=== PATIENT | female | born 1960 | race Caucasian/White ===

== ENCOUNTER 2020-09-22 12:35 | Emergency (ER) | payer OTHER ==
[~2020-09-22] VITALS: Ht 167.6 cm; Wt 68.1 kg
[2020-09-22 12:40] VITALS: BP 163/90
[2020-09-22] MEDS ORDERED: DIPH,PERTUSS(ACELL),TET VAC/PF 0.5 ML SYRINGE. VAX IM ONE (13:00)
[2020-09-22] MEDS ORDERED: LIDOCAINE 1%/EPI 1:100,000 10 ML VIAL. INJ ONE (13:15)
[2020-09-22] MEDS ORDERED: HYDROcodone/APAP 5/325MG 1 TAB TABLET PO ONE (13:15)
--- NOTE | 2020-09-22 13:17 | PHYS DOC ---
Past History Past Medical History: Hypertension, Other Additional Past Medical Histor: SPASMATIC DYSTONIA (KRISTIAN GOLDSTEIN APRN) Past Surgical History: , Other Additional Past Surgical Histo: L-KNEE (KRISTIAN GOLDSTEIN APRN) Alcohol Use: Occasionally (KRISTIAN GOLDSTEIN APRN) General Adult EDM: Chief Complaint: LACERATION/AVULSION HPI: HPI: Patient is a 60-year-old female presents with laceration to her left wrist after slipping and falling on glass. Patient states she dropped a tea pot and to avoid having her feet, she stepped back and then slipped on the floor and fell forwards onto the glass. Patient denies hitting her head, or loss of consciousness. Denies any other injuries. Denies tetanus vaccine up-to-date. Denies taking anything for pain prior to arrival. (KRISTIAN GOLDSTEIN APRN) Review of Systems: Review of Systems: Respiratory: Denies cough or shortness of breath Cardiovascular: Denies chest pain or edema Musculoskeletal: Denies back pain or joint pain Integument: Reports laceration to left wrist (KRISTIAN GOLDSTEIN APRN) Current Medications: Current Meds: Current Medications Medications (Trade) Dose Ordered Sig/Edith Start Time Stop Time Status Last Admin Dose Admin Acetaminophen/ Hydrocodone Bitart (Lortab 5/325) 1 tab 1X ONCE 09/22/20 13:15 09/22/20 13:16 UNV Diphtheria/ Pertussis/Tetanus Vacc (ADACEL TDap SYRINGE) 0.5 ml ONCE ONCE 09/22/20 13:00 09/22/20 13:05 DC Lidocaine/ Epinephrine (Xylocaine 1%-Epi 1:100,000) 10 ml 1X ONCE 09/22/20 13:15 09/22/20 13:16 UNV (KRISTIAN GOLDSTEIN APRN) Allergies: Allergies: Allergies Coded Allergies Type Severity Reaction Last Updated Verified No Known Drug Allergies 09/22/20 No (KRISTIAN GOLDSTEIN APRN) Physical Exam: PE: Constitutional: Well developed, well nourished, no acute distress, non-toxic appearance. [] Cardiovascular:Heart rate regular rhythm, no murmur [] Lungs & Thorax: Bilateral breath sounds clear to auscultation [] Skin: Laceration to left wrist, bleeding is controlled, range of motion intact Extremities: No tenderness, ROM intact, no edema. [] (KRISTIAN GOLDSTEIN APRN) Current Patient Data: Vital Signs: Vital Signs Date Time Temp Pulse Resp B/P (MAP) Pulse Ox O2 Delivery O2 Flow Rate FiO2 09/22/20 12:40 98.4 94 20 163/90 (114) 97 Room Air (KRISTIAN GOLDSTEIN APRN) EKG: EKG: [] (KRISTIAN GOLDSTEIN APRN) Radiology/Procedures: Radiology/Procedures: []Left wrist x-rays 3 views HISTORY: Fall, pain. FINDINGS: No fracture. No dislocation. 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 Soft tissues are unremarkable. IMPRESSION: No acute osseous injury. Electronically signed by: Christofer Romero MD (09/22/2020 1:46 PM) [id number] 5-0 sutures used to repair laceration to left wrist. Wound was cleaned with saline, injected Lido, 5 sutures placed. (KRISTIAN GOLDSTEIN APRN) Heart Score: C/O Chest Pain: No Risk Factors: Risk Factors: DM, Current or recent (<one month) smoker, HTN, HLP, family history of CAD, obesity. Risk Scores: Score 0 - 3: 2.5% MACE over next 6 weeks - Discharge Home Score 4 - 6: 20.3% MACE over next 6 weeks - Admit for Clinical Observation Score 7 - 10: 72.7% MACE over next 6 weeks - Early Invasive Strategies (KRISTIAN GOLDSTEIN APRN) Course & Med Decision Making: Course & Med Decision Making Pertinent Labs and Imaging studies reviewed. (See chart for details) [] 60-year-old female presents with laceration to her left wrist after slipping and falling on broken glass. X-ray of left wrist ordered to rule out foreign body fracture. X-rays negative for foreign bodies or fracture. Wound cleaned with saline. Left wrist sutured. Tdap given. Patient to keep wound clean and dry. Patient will need to follow-up with her primary care physician or return to the emergency room to have sutures removed in 7 to 10 days. (KRISTIAN GOLDSTEIN APRN) Course & Med Decision Making I oversaw on the above date of service of this patient and discussed the care with the CONTACT CENTER AGENT. I agree with the findings, plan of care, and disposition as documented. Electronically signed, Shahriar So DO (SHAHRIAR SO DO) Corrina Disclaimer: Corrina Disclaimer: This electronic medical record was generated, in whole or in part, using a voice recognition dictation system. (KRISTIAN GOLDSTEIN APRN) Departure Departure: Impression: Primary Impression: Laceration of wrist, left Qualified Codes: S61.512A - Laceration without foreign body of left wrist, initial encounter Disposition: HOME / SELF CARE / HOMELESS Condition: STABLE Referrals: PAULINA MEZA MD (PCP) Patient Instructions: Laceration Care, Adult, [id number] Additional Instructions: You were seen in the emergency room after a fall and laceration to your left wrist. You were given a tetanus vaccination. X-ray of your left wrist was negative for any foreign marco or fracture. Please keep the sutures clean and dry. You will need to return to the emergency room to have sutures removed or follow-up with your PCP for removal in 7 to 10 days. Return emergency room with worsening symptoms or concerns. EMERGENCY DEPARTMENT GENERAL DISCHARGE INSTRUCTIONS Thank you for coming to [facility] ([facility]) today and trusting us with you care. We trust that you had a positivie experience in our Emergency Department. If you wish to speak to the department management, you may call the director at [phone]. YOUR FOLLOW UP INSTRUCTIONS ARE FOLLOWS: 1. Do you have a private Doctor? If you do not have a private doctor, please ask for a resource list of physicians or clinics that may be able to assist you with follow up care. 2. The Emergency Physician has interpreted your x-rays. The X-Ray specialist will also review them. If there is a change in the findings, you will be notified in 48 hours when at all possible. 3. A lab test or culture has been done, your results will be reviewed and you will be notified if you need a change in treatment. ADDITIONAL INSTRUCTIONS AND INFORMATION: 1. Your care today has been supervised by a physician who is specially trained in emergency care. Many problems require more than one evaluation for a complete diagnosis and treatment. We recommend that you schedule your follow up appointment as recommended to ensure complete treatment of you illness or injury. If you are unable to obtain follow up care and continue to have a problem, or if your condition worsens, we recommend that you return to the ED. 2. We are not able to safely determine your condition over the phone nor are we able to give sound medical advice over the phone. For these safety reasons, if you call for medical advice we will ask you to come to the ED for further evaluation. 3. If you have any questions regarding these discharge instructions please call the ED at [phone]. SAFETY INFORMATION: In the interest of safety, wellness, and injury prevention; we encourage you to wear your sealbelt, if you smoke; quite smoking, and we encourage family to use a protective helmet for bicycling and other sporting events that present an increased risk for head injury. IF YOUR SYMPTOMS WORSEN OR NEW SYMPTOMS DEVELOP, OR YOU HAVE CONCERNS ABOUT YOUR CONDITION; OR IF YOUR CONDITION WORSENS WHILE YOU ARE WAITING FOR YOUR FOLLOW UP APPOINTMENT; EITHER CONTACT YOUR PRIMARY CARE DOCTOR, THE PHYSICIAN WHOSE NAME AND NUMBER YOU WERE GIVEN, OR RETURN TO THE ED IMMEDIATELY. KRISTIAN GOLDSTEIN APRN September 22, 2020 13:17 SHAHRIAR SO DO September 26, 2020 09:54
--- NOTE | 2020-09-22 13:48 | RAD ---
Left wrist x-rays 3 views HISTORY: Fall, pain. FINDINGS: No fracture. No dislocation. Mild osteoarthritic change at the first MCP joint and of the t humb interphalangeal joint with bone spurring noted. Soft tissues are unremarkable. IMPRESSION: No acute osseous injury. Electronically signed by: Christofer Romero MD (09/22/2020 1:46 PM) [id number]
== END 2020-09-22 16:00 | disposition home or self-care (01) ==
LOC: ER 12:35
DX: S61.512A Laceration without foreign body of left wrist, initial encounter (principal); I10 Essential (primary) hypertension; Z23 Encounter for immunization; W25.XXXA Contact with sharp glass, initial encounter; Y93.89 Activity, other specified; Y92.89 Other specified places as the place of occurrence of the external cause; Y99.8 Other external cause status
CPT/HCPCS: 73110; 90471; 90715; 99283-25

== ENCOUNTER 2020-09-29 12:33 | Emergency (ER) | payer OTHER ==
[~2020-09-29] VITALS: Ht 167.6 cm; Wt 68.1 kg
[2020-09-29 12:42] VITALS: BP 126/66
--- NOTE | 2020-09-29 13:12 | PHYS DOC ---
Past History Past Medical History: Hypertension, Other Additional Past Medical Histor: SPASMATIC DYSTONIA (KRISTIAN GOLDSTEIN APRN) Past Surgical History: , Other Additional Past Surgical Histo: L-KNEE (KRISTIAN GOLDSTEIN APRN) Alcohol Use: Occasionally (KRISTIAN GOLDSTEIN APRN) General Adult EDM: Chief Complaint: SUTURE/STAPLE REMOVAL HPI: HPI: Patient is a 60-year-old female presents with suture removal from left wrist. Patient denies any increase in pain, discharge from the wound, increasing redness. Wound is healed and sutures are ready to be removed. (KRISTIAN GOLDSTEIN APRN) Review of Systems: Review of Systems: Constitutional: Denies fever or chills Respiratory: Denies cough or shortness of breath Cardiovascular: Denies chest pain or edema Integument: Suture removal, left wrist (KRISTIAN GOLDSTEIN APRN) Allergies: Allergies: Allergies Coded Allergies Type Severity Reaction Last Updated Verified No Known Drug Allergies 09/22/20 No (KRISTIAN GOLDSTEIN APRN) Physical Exam: PE: Constitutional: Well developed, well nourished, no acute distress, non-toxic appearance. Cardiovascular:Heart rate regular rhythm, no murmur Lungs & Thorax: Bilateral breath sounds clear to auscultation Skin: Warm, dry, no erythema, no rash. (KRISTIAN GOLDSTEIN APRN) Current Patient Data: Vital Signs: Vital Signs Date Time Temp Pulse Resp B/P (MAP) Pulse Ox O2 Delivery O2 Flow Rate FiO2 09/29/20 12:42 97.8 87 16 126/66 (86) 100 (KRISTIAN GOLDSTEIN APRN) EKG: EKG: [] (KRISTIAN GOLDSTEIN APRN) Radiology/Procedures: Radiology/Procedures: [] (KRISTIAN GOLDSTEIN APRN) Heart Score: C/O Chest Pain: No Risk Factors: Risk Factors: DM, Current or recent (<one month) smoker, HTN, HLP, family history of CAD, obesity. Risk Scores: Score 0 - 3: 2.5% MACE over next 6 weeks - Discharge Home Score 4 - 6: 20.3% MACE over next 6 weeks - Admit for Clinical Observation Score 7 - 10: 72.7% MACE over next 6 weeks - Early Invasive Strategies (KRISTIAN GOLDSTEIN APRN) Course & Med Decision Making: Course & Med Decision Making Pertinent Labs and Imaging studies reviewed. (See chart for details) [] 60-year-old female presents with suture removal from left wrist. No signs of infection. No fevers reported. Patient denies any complaints from wound. Sutures were placed 7 days ago. (KRISTIAN GOLDSTEIN APRN) Dragon Disclaimer: Dragon Disclaimer: This electronic medical record was generated, in whole or in part, using a voice recognition dictation system. (KRISTIAN GOLDSTEIN APRN) Attending Co-Sign The patient was seen and interviewed as well as examined at the bedside. The chart was reviewed. The case was discussed. Agree with the plan of care. (EUN DOUGLAS DO) Departure Departure: Impression: Primary Impression: Visit for suture removal Disposition: HOME / SELF CARE / HOMELESS Condition: STABLE Referrals: RAAD CANNON MD (PCP) Patient Instructions: Suture Removal Additional Instructions: EMERGENCY DEPARTMENT GENERAL DISCHARGE INSTRUCTIONS Thank you for coming to [facility] ([facility]) today and trusting us with you care. We trust that you had a positivie experience in our Emergency Department. If you wish to speak to the department management, you may call the director at [phone]. YOUR FOLLOW UP INSTRUCTIONS ARE FOLLOWS: 1. Do you have a private Doctor? If you do not have a private doctor, please ask for a resource list of physicians or clinics that may be able to assist you with follow up care. 2. The Emergency Physician has interpreted your x-rays. The X-Ray specialist will also review them. If there is a change in the findings, you will be notified in 48 h ours when at all possible. 3. A lab test or culture has been done, your results will be reviewed and you will be notified if you need a change in treatment. ADDITIONAL INSTRUCTIONS AND INFORMATION: 1. Your care today has been supervised by a physician who is specially trained in emergency care. Many problems require more than one evaluation for a complete diagnosis and treatment. We recommend that you schedule your follow up appointment as recommended to ensure complete treatment of you illness or injury. If you are unable to obtain follow up care and continue to have a problem, or if your condition worsens, we recommend that you return to the ED. 2. We are not able to safely determine your condition over the phone nor are we able to give sound medical advice over the phone. For these safety reasons, if you call for medical advice we will ask you to come to the ED for further evaluation. 3. If you have any questions regarding these discharge instructions please call the ED at [phone]. SAFETY INFORMATION: In the interest of safety, wellness, and injury prevention; we encourage you to wear your sealbelt, if you smoke; quite smoking, and we encourage family to use a protective helmet for bicycling and other sporting events that present an increased risk for head injury. IF YOUR SYMPTOMS WORSEN OR NEW SYMPTOMS DEVELOP, OR YOU HAVE CONCERNS ABOUT YOUR CONDITION; OR IF YOUR CONDITION WORSENS WHILE YOU ARE WAITING FOR YOUR FOLLOW UP APPOINTMENT; EITHER CONTACT YOUR PRIMARY CARE DOCTOR, THE PHYSICIAN WHOSE NAME AND NUMBER YOU WERE GIVEN, OR RETURN TO THE ED IMMEDIATELY. KRISTIAN GOLDSTEIN APRN September 29, 2020 13:12 EUN DOUGLAS DO September 30, 2020 06:17
== END 2020-09-29 13:25 | disposition home or self-care (01) ==
LOC: ER 12:33
DX: S61.512D Laceration without foreign body of left wrist, subsequent encounter (principal); I10 Essential (primary) hypertension; Z48.02 Encounter for removal of sutures; X58.XXXD Exposure to other specified factors, subsequent encounter
CPT/HCPCS: 99281